=== PATIENT | male | born 1960 | race Caucasian/White ===

== ENCOUNTER 2024-07-08 08:29 | Observation (INO) ==
--- NOTE | 2024-06-11 12:58 | PAT Medication Instructions ---
Medication Instructions Date of Service June 11, 2024 Home Medications Medication Instructions Recorded sulfamethoxazole 800 1 tab PO BID #20 tabs 06/09/ mg-trimethoprim 160 mg tablet (Bactrim DS) omeprazole 20 mg capsule,delayed release 20 mg PO QAM sulfamethoxazole 800 mg-trimethoprim 160 mg tablet (Bactrim DS) 1 tab PO BID acetaminophen 500 mg tablet (Acetaminophen Extra Strength) 500 mg PO Q6H PRN prn alfuzosin 10 mg tablet,extended release 24 hr 10 mg PO QAM ascorbic acid (vitamin C) 500 mg capsule (Vitamin C With Sandra Hips) 500 mg PO QAM cholecalciferol (vitamin D3) 50 mcg (2,000 unit) capsule (Vitamin D3) 50 mcg PO QAM cyclobenzaprine 5 mg tablet 5 mg PO BID PRN prn sennosides 8.6 mg tablet (senna) 8.6 mg PO TID PRN prn vibegron 75 mg tablet (Gemtesa) 75 mg PO QAM Continue as directed sulfamethoxazole 800 mg-trimethoprim 160 mg tablet (Bactrim DS) 1 tab PO BID DO NOT take the morning of surgery ascorbic acid (vitamin C) 500 mg capsule (Vitamin C With Sandra Hips) 500 mg PO QAM cholecalciferol (vitamin D3) 50 mcg (2,000 unit) capsule (Vitamin D3) 50 mcg PO QAM sennosides 8.6 mg tablet (senna) 8.6 mg PO TID PRN prn vibegron 75 mg tablet (Gemtesa) 75 mg PO QAM Take morning of surgery With a small sip of water, OTHERWISE NOTHING TO EAT OR DRINK AFTER MIDNIGHT: omeprazole 20 mg capsule,delayed release 20 mg PO QAM acetaminophen 500 mg tablet (Acetaminophen Extra Strength) 500 mg PO Q6H PRN prn (if needed) alfuzosin 10 mg tablet,extended release 24 hr 10 mg PO QAM cyclobenzaprine 5 mg tablet 5 mg PO BID PRN prn (if needed) Take evening before surgery acetaminophen 500 mg tablet (Acetaminophen Extra Strength) 500 mg PO Q6H PRN prn (if needed) cyclobenzaprine 5 mg tablet 5 mg PO BID PRN prn (if needed) sennosides 8.6 mg tablet (senna) 8.6 mg PO TID PRN prn (if needed) Other Notes If you have any questions please call us at [phone] or [phone] or [phone] or [phone]
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
[~2024-07-08 08:29] MED LIST: ALLERGY Noted to ORDERED Medication SCH; BUPIVACAINE 0.25% PF 30 ML VIAL ONE; BUPIVACAINE 0.5 % 5 MG/1 ML PF 10ML VIAL ONE
--- NOTE | 2024-07-08 08:42 | History & Physical Bridge Note ---
Date of Service July 08, 2024 History & Physical Bridge Note I have examined the patient, reviewed the History & Physical and in the interval since the performance of the History & Physical I have noted the following changes of clinical significance: no changes noted
[2024-07-08] MEDS ORDERED: Nursing to Pharmacy Communication SCH (09:00)
[2024-07-08] MEDS: METOCLOPRAMIDE HCL 10 MG TABLET PO SCH (09:25)
[2024-07-08] MEDS: ACETAMINOPHEN 500 MG TAB PO SCH ×2 (09:25→15:09)
[2024-07-08] MEDS: CeleBREX 200 MG CAP PO SCH (09:25)
[2024-07-08] MEDS: LR 15ML/HR IV SCH (09:26)
[2024-07-08] MEDS: FAMOTIDINE 20 MG TAB PO SCH (09:26)
[2024-07-08] MEDS: dexAMETHasone**PF** 10 MG/ML VIAL IV SCH (09:26)
[2024-07-08] MEDS: LR 60ML/HR IV SCH (09:27)
[2024-07-08] MEDS ORDERED: ATROPINE SULFATE 0.1 MG/ML 10ML SYR IV PRN (09:48)
[2024-07-08] MEDS ORDERED: ONDANSETRON INJ 2 MG/ML 2 ML VIAL IV PRN ×2 (09:48→13:53)
[2024-07-08] MEDS ORDERED: fentaNYL citrate PF 100 MCG/2 ML VIAL IV PRN (09:48)
[2024-07-08] MEDS ORDERED: ePHEDrine sulfate 50 MG/ML AMP IV PRN (09:48)
[2024-07-08] MEDS ORDERED: ONDANSETRON INJ 2 MG/ML 2 ML VIAL ONE ×2 (10:10→12:13)
[2024-07-08] MEDS ORDERED: MIDAZOLAM HCL 1 MG/ML 2ML VIAL ONE ×2 (10:10→10:31)
[2024-07-08] MEDS ORDERED: PROPOFOL IV EMULSION 10 MG/ML 20 ML VIAL IV ONE ×2 (10:11→12:17)
[2024-07-08] MEDS: ceFAZolin 2000MG 2,000 MG/15 ML SYR IV SCH ×2 (10:46→18:34)
[2024-07-08] MEDS ORDERED: KETAMINE HCL 10MG/ML SYR ONE (10:55)
[2024-07-08] MEDS: ORTHO JOINT ANESTHETIC ONE (11:20)
[2024-07-08] MEDS: TRANEXAMIC ACID 1,000 MG **IV Intra-op IV SCH (11:55)
[2024-07-08] MEDS: ROPIV 0.5% 246mg, Ketorolac 30mg, EPINEPHrine 0.5mg in NSS INFIL SCH (11:57)
[2024-07-08] MEDS ORDERED: KETOROLAC 30 MG/ML VIAL ONE (12:15)
--- NOTE | 2024-07-08 12:51 | Operative Report ---
PG Post Operative Report Pre & Post Diagnosis Operation Date: 07/08/24 10:40 Pre-Op Diagnosis: Right Knee Degenerative Joint Disease Post-Op Diagnosis: Right Knee Degenerative Joint Disease I identified the patient and participated in the time-out.: Yes Procedure Operation Date: 07/08/24 10:40 Actual Procedures p Right Total Knee Arthroplasty - Arian Solis MD Surgeon Arian Solis MD Front End Software Developer Evan Jaime PA-C Estimated Blood Loss 50 Findings Consistent with Post-Op Diagnosis Operative findings revealed severe right valgus deformity to his knee with a flexion contracture and fixed valgus deformity. He had grade 4 [id number] disease in all 3 compartments most severe laterally. Hypoplasia of the lateral femoral condyle. Specimens Right knee sent for pathology. Anesthesia Type Spinal MAC Complications none Disposition Accompanied Patient To Recovery: No Indications Patient is a 64-year-old gentleman who is 1 of me from previous left knee replacement status years ago. Over the years he developed increased pain discomfort deformity in his right knee. His symptoms progressed to the point where he had trouble managing this nonoperatively. Surely affecting his quality of life. Was limiting his activities. He would like to see with total knee arthroplasty. Description of Procedure Operative implants consist of: 1. Biomet Vanguard size 75 right posterior Byce femoral component. 2. Biomet size 79 tibial tray. 3. 10 mm posterior stabilized polyethylene insert. 4. 34 x 8-1/2 all poly patella. The patient was taken the operating, identified, placed on the operating table in the supine position. All conductors were appropriately padded. IV antibiotics fibra anesthesia team. Spinal anesthetic and adductor canal block had been provided in the holding area. A right thigh tent was then placed. The right lower extremity was then prepped and draped in usual sterile fashion. The right leg was elevated and exsanguinated with use of an Esmarch and tourniquet placed at 300 mmHg. An anterior approach of the right knee was then performed to longitudinal incision centered over the patella. Sharp dissection was Through subcutaneous tissue down the extensor mechanism. A medial parapatellar arthrotomy incision was made. Some subperiosteal dissection was carried out medially. The fat pad was dissected release patella tendon. Lateral patellofemoral ligament was released. Patella subluxated laterally and the knee was flexed. The osteophytes taken off distal femur. ACL and PCL were then released from distal femur the tibia subluxated anteriorly. The external treatment LYMErix then placed on the anterior face the tibia and adjusted 12 mm medially. Proximal tibial cut was made remove about 2 mm of bone from the lateral side which is most efficient. He had quite a bit of deformity in his tibia. The tibia was then sized to a size 79. I tried to maximize the coverage while keeping appropriate external rotation of the tibial tray. Attention drawn the femur. The distal femur down with a sharp drill. Intramedullary canal was suction. A right 5 degree valgus cutting guide was placed. The distal femoral cutting block was pinned in place. Distal femoral cut was made to take an additional 5 mm of bone off distal femur. At the +3 cut it was even below the notch. The femur was then sized to a size 75. The AP cutting block was pinned parallel to the epicondylar axis which was 5 degrees of external rotation. The anterior cut, anterior chamfer, posterior cut, posterior chamfer cuts were made. The box cutting guide was placed and just slight lateral and the box cut was made. The knee was flexed. The remnants of the medial and lateral menisci were excised. I did release the popliteus in order to equalize the flexion gap. I then brought the knee out in extension and released the entire IT band and posterior lateral capsule in order to equalize extension gap. Great care was taken throug hout the procedure to protect the peroneal nerve at all times. The osteophytes taken off the posterior aspect of femur. Trial femoral component was placed. The tibial tray was pinned in Xuan external rotation. I then trialed the knee and the 10 mm insert fit most appropriately. I did not feel like it needed I needed any additional stability with PS plus insert. Attention drawn the patella. Patella was cleaned of all soft tissue. Patella thickness measured 23 mm in thickness was cut down to 14. Was sized to a size 34 patella. The lug holes were drilled for 34 patella. The lateral osteophytes removed. Patella button was placed. Knee was taken through range of motion patella tracked nicely with no thumbs test. Attention drawn to placing permanent components. All trial components were removed. Bone plug was placed into this femur limit blood loss. Double batch Palacos G cement was mixed. A BiomShopatronguard size 75 right posterior stabilized femoral component, size 79 tibial tray, a 10 mm posterior Byce polyethylene insert, and a 34 x 8 and half all poly patella then cemented in place. The knee was brought out into full extension till cement hardened. Final cement check was then performed. The pericapsular tissues were injected with total of 100 cc of Ortho mix. The patient did receive 1 g of tranexamic acid. The tourniquet was then let down for final tourniquet time 67 minutes. Hemostasis assured use electrocautery. Extensor Meclomen then closed with combination 1 PDS suture and then 1 Vicryl suture in a [id number] fashion. Extensor Meclomen checked found to be intact the subcutaneous tissue then closed with 2 Dexon suture in a buried interrupted fashion skin was closed skin karin. Leg was then cleaned and dried and a sterile dressing with Xeroform, 4 fours, sterile cast padding, Lito bandage were applied. Patient then transferred to the recovery room in stable condition. Patient tolerated procedure well and there were no complications. Evan Jaime, my physician assistant editor, was present for the entire procedure. His assistance was essential and required for appropriate patient positioning, prepping and draping, surgical exposure, performing the technical details of the operation, placement the implants, closure of the wound, and placement of the sterile bandage. I attest to the content of the Intraoperative Record and any orders documented therein. Any exceptions are noted below.
--- NOTE | 2024-07-08 13:04 | XRay Report ---
XR knee RT 1 or 2V routine CLINICAL HISTORY: Surgical Post Op COMPARISON: None FINDINGS: Right knee prosthesis shows no hardware complication. There is expected soft tissue gas. S kin karin are present. IMPRESSION: Unremarkable postoperative exam. ACT 112: Negative or not required by law. Electronically signed by: Eric Florse M.D. 07/08/2024 1:02 PM
[2024-07-08] MEDS ORDERED: ALUMINUM/MAGNESIUM SUSP 30 ML UDC PO PRN (13:53)
[2024-07-08] MEDS ORDERED: MAGNESIUM HYDROXIDE SUSP 30 ML UDC PO PRN (13:53)
[2024-07-08] MEDS ORDERED: NALOXONE HCL 0.4 MG/1 ML VIAL/CARP IV PRN (13:53)
[2024-07-08] MEDS ORDERED: METOCLOPRAMIDE HCL INJ 5 MG/ML 2 ML VIAL IV PRN (13:53)
[2024-07-08] MEDS ORDERED: HYDROmorphone INJ 0.5 MG/0.5 ML SYR IV PRN (13:53)
[2024-07-08] MEDS ORDERED: TAMSULOSIN HCL 0.4 MG CAP PO PRN (13:53)
[2024-07-08] MEDS ORDERED: CYCLOBENZAPRINE HCL 5 MG TAB PO PRN (13:53)
[2024-07-08] MEDS ORDERED: bisacodyL 10 MG SUPP PR PRN (13:53)
[2024-07-08] MEDS ORDERED: NON-FORMULARY MEDICATION (Amino Acids [Amino Acid] Capsule) PO SCH (14:00)
[2024-07-08] MEDS ORDERED: SENNA 8.6 MG TAB PO SCH ×2 (14:00→21:00)
[2024-07-08] MEDS: KETOROLAC TROMETHAMINE 15 MG/ML VIAL IV SCH (15:11)
--- NOTE | 2024-07-08 15:57 | Anesthesiology Progress Note ---
Date of Service July 08, 2024 Anesthesia Post Procedure Vital Signs Vital Signs: Temp Pulse Pulse Resp BP Pulse Ox O2 Del Method 07/08/24 14:55 36.6 C 86 16 144/89 H 94 Room Air 07/08/24 14:23 36.5 C 89 18 147/81 H 93 Room Air 07/08/24 13:55 37.2 C 93 H 16 135/85 96 Room Air 07/08/24 13:40 36.6 C 90 20 127/74 98 Nasal Cannula 07/08/24 13:30 80 16 126/74 98 Nasal Cannula 07/08/24 13:20 84 14 130/73 96 Room Air 07/08/24 13:10 85 16 131/73 96 Room Air 07/08/24 13:00 82 12 130/70 99 Oxymask 07/08/24 12:50 91 H 14 131/80 98 Oxymask 07/08/24 12:44 36.2 C L 94 H 16 130/72 96 Oxymask 07/08/24 09:10 37 C 94 H 20 168/99 H 96 Room Air O2 Flow Rate 07/08/24 14:55 07/08/24 14:23 07/08/24 13:55 07/08/24 13:40 2 07/08/24 13:30 2 07/08/24 13:20 07/08/24 13:10 07/08/24 13:00 4 07/08/24 12:50 4 07/08/24 12:44 6 07/08/24 09:10 Transfer of Care Handoff Completed per policy Notes Mental Status: alert / awake / arousable and participated in evaluation Patient Amnestic to Procedure: Yes Nausea / Vomiting: adequately controlled Pain: adequately controlled Airway Patency, RR, SpO2: stable & adequate BP & HR: stable & adequate Hydration State: stable & adequate Anesthetic Complications: no major complications apparent and Pt Satisfied with anesthetic care
[2024-07-08] MEDS: ASCORBIC ACID 500 MG TAB PO SCH (17:15)
[2024-07-08] MEDS: TRANEXAMIC ACID / 0.7% NACL 1,000 MG/100 ML BAG IV SCH (18:25)
[2024-07-08] MEDS: oxyCODONE HCL IR 5 MG TAB (IMMEDIATE RELEASE) PO PRN (18:28)
[2024-07-08] MEDS: DOCUSATE SODIUM 100 MG CAP PO SCH (20:49)
[2024-07-08] MEDS: SENNA 8.6 MG TAB PO SCH (20:49)
[2024-07-08] MEDS: ASPIRIN 81 MG ECTAB PO SCH (20:49)
[2024-07-09 06:36] LABS: Hematocrit (blood only) 30.7 % (42.0-52.0); Hemoglobin 10.5 g/dl (14.0-18.0); Mean Corpuscular Hemoglobin 29.6 pg (25.0-34.0); Mean Corpuscular Hgb Conc 34.2 g/dL (32.0-36.0); Mean Corpuscular Volume 86.5 fL (80.0-100.0); Mean Platelet Volume 9.2 fL (9.4-12.4); Platelet Count 155 K/uL (130-400); RDW Standard Deviation 44.2 fL (36.4-46.3); Red Blood Count 3.55 M/uL (4.70-6.10); White Blood Count 15.34 K/ul (4.8-10.8)
[2024-07-09 06:50] LABS: BUN Creatinine Ratio 21.6 (10-20); Calcium 8.3 mg/dl (8.6-10.3); Creatinine Clr Calc Pharmacy 79.4 ml/min; Potassium 4.4 mmol/L (3.5-5.1)
[2024-07-09] MEDS: dexAMETHasone 10 MG in SYRINGE 0 ML IV SCH (07:06)
[2024-07-09] MEDS: MULTIVITAMIN TAB PO SCH (08:04)
[2024-07-09] MEDS: PANTOprazole 40 MG TAB PO SCH (08:04)
[2024-07-09] MEDS: VIBEGRON 75 MG TAB PO SCH (08:05)
[2024-07-09] MEDS: TAMSULOSIN HCL 0.4 MG CAP PO SCH (08:05)
[2024-07-09] MEDS: CHOLECALCIFEROL 25 MCG (1000 UNITS) TAB PO SCH (08:06)
[2024-07-09] MEDS ORDERED: ASCORBIC ACID 500 MG PO SCH (09:00)
[2024-07-09] MEDS ORDERED: [UNRECOGNIZED DRUG - OTHER] PO SCH (09:00)
--- NOTE | 2024-07-09 09:01 | Orthopedic Progress Note ---
Date of Service July 09, 2024 Assessment & Plan (1) Status post total right knee replacement: Pain well controlled. PT/OT wbat dvt prophylaxis: teds, scd's, aspirin discharge home today with home health discussed with Dr Will Carlos .64 year old patient POD 1 from right tka. Pain controlled but has some discomfort around the karin. Has some hiccups today. No other complaints. Review of Systems All systems reviewed & are unremarkable except as noted in HPI & below. Physical Exam . alert and oriented. NAD. Vss Right leg: dressing intact, reinforced last night due to some bloody drainage. Able to do straight leg raise, dorsiflex and plantarflex. NVI Results & Data Results & Data Laboratory Results . Diagnostic Findings . PG Care Time/CCT Total # of Minutes Spent Total Time Spent with Patient: Total time spent is greater than 50% in coordination of care (as documented) at patient's floor/unit and/or counseling patient: Coding Level of Care Code 13712 Post Operative Follow-Up Diagnoses Status post total right knee replacement Z96.651
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
== END 2024-07-09 11:12 | disposition home health service (06) ==
LOC: 3E 08:29 → ASU 08:29
DX: M19.90 Unspecified osteoarthritis, unspecified site; Z88.8 Allergy status to other drugs, medicaments and biological substances; K21.9 Gastro-esophageal reflux disease without esophagitis; X58.XXXA Exposure to other specified factors, initial encounter; M17.11 Unilateral primary osteoarthritis, right knee; Z88.0 Allergy status to penicillin; Z87.81 Personal history of (healed) traumatic fracture; Z79.899 Other long term (current) drug therapy; Z79.82 Long term (current) use of aspirin; S32.9XXA Fracture of unspecified parts of lumbosacral spine and pelvis, initial encounter for closed fracture; Z87.891 Personal history of nicotine dependence; N40.0 Benign prostatic hyperplasia without lower urinary tract symptoms